=== PATIENT | female | born 1995 | race African-American/Black ===

== ENCOUNTER 2020-01-15 11:17 | Emergency (ER) | payer OTHER ==
[2020-01-15 11:47] VITALS: BP 126/70
--- NOTE | 2020-01-15 12:30 | ER Document Report ---
ED GI/ - General Chief Complaint: Foreign Body Stated Complaint: VAGINAL PROBLEM Time Seen by Provider: 01/15/20 12:12 Primary Care Provider: [facility] [Provider Group] - Follow up as needed Notes: 24-year-old female presented to ED for tampon in the vagina. She states she cannot find the string order tailbone. She states she has tried. She states that she put the tampon in yesterday and then she had sexual intercourse last night and she cannot find the tampon. She states she is having pelvic pain and she thinks is just the tampon. She states if we would remove the tampon she would be fine to go home. She states her last menstrual period started on the third and has been until yesterday. She states she does not smoke but she does use drinks 2 glasses of wine a day usually and smokes pot once a week. Constitutional: Negative for fever. HENT: Negative for sore throat. Eyes: Negative for visual changes. Cardiovascular: Negative for chest pain. Respiratory: Negative for shortness of breath. Gastrointestinal: Negative for abdominal pain, vomiting or diarrhea. Genitourinary: Pelvic pain and a lost tampon. See HPI Musculoskeletal: Negative for back pain. Skin: Negative for rash. Neurological: Negative for headaches, weakness or numbness. 10 point ROS negative except as marked above and in HPI. VITAL SIGNS: Within normal limits. GENERAL: No acute distress, non-toxic appearance. NECK: Normal range of motion, no tenderness, supple, no lymphadenopathy, No adenopathy, no JVD. CHEST: Clear breath sounds bilaterally. No wheezes, rales, or rhonchi. CARDIAC: Regular rate and rhythm. S1 and S2, without murmurs, gallops, or rubs. VASCULAR: No Edema. Peripheral pulses normal and equal in all extremities. ABDOMEN: Normal and soft with no tenderness, no masses or pulsatile masses. GASTROINTESTINAL: Bowel sounds normal GENITOURINARY: Pelvic exam does show a tampon to the right of the cervix. Squished up behind the cervix on the right side. Was able to fish out the string was a Q-tip and then remove the tampon. Patient states is relieved all pain LYMPATHTIC: No lymphadenopathy noted. MUSCULOSKELETAL: Good range of motion of all major joints. Extremities without clubbing, cyanosis or edema. NEUROLOGICAL: Alert and oriented x 3. No focal sensory or strength deficits. Speech normal. Follows commands appropriately. PSYCHIATRIC: Normal Affect, judgement and mood. SKIN: Normal appearance with no rashes or lesions. TRAVEL OUTSIDE OF THE [place] IN LAST 30 DAYS: No - HPI Patient complains to provider of: Pelvic pain Onset: Yesterday Timing/Duration: Persistent Quality of pain: Cramping Severity at maximum: Moderate Severity in ED: Moderate Pain Level: 2 Location: Pelvis Vaginal bleeding (Compared to normal period): None LMP: 01/04/2020 Associated symptoms: Other - Pelvic pain due to yazidism Exacerbated by: Denies Relieved by: Denies Similar symptoms previously: No Recently seen / treated by doctor: No - Related Data Allergies/Adverse Reactions: No Known Allergies Allergy (Verified 01/15/20 12:06) Past Medical History - General Information source: Patient - Social History Smoking Status: Never Smoker Frequency of alcohol use: Heavy - 2 glasses of wine a night Drug Abuse: Marijuana Family History: Reviewed & Not Pertinent Patient has suicidal ideation: No Patient has homicidal ideation: No - Past Medical History Cardiac Medical History: Reports: None Pulmonary Medical History: Reports: None EENT Medical History: Reports: None Neurological Medical History: Reports: None Endocrine Medical History: Reports: None Renal/ Medical History: Reports: None Malignancy Medical History: Reports: None GI Medical History: Reports: None Musculoskeletal Medical History: Reports None Skin Medical History: Reports None Psychiatric Medical History: Reports: None Traumatic Medical History: Reports: None Infectious Medical History: Reports: None Surgical Hx: Negative Past Surgical History: Reports: None Physical Exam - Vital signs Vitals: Temp Pulse Resp BP Pulse Ox 98.5 F 87 16 126/70 H 100 01/15/20 11:46 01/15/20 11:46 01/15/20 11:46 01/15/20 11:46 01/15/20 11:46 Course - Re-evaluation Re-evalutation: 01/15/20 22:19 Patient stated she had complete relief when the tampon was removed. There was no foul odor. There was no bleeding from the vaginal area during the exam. Patient was discharged home to follow-up with primary care. Vital signs were stable. - Vital Signs Vital signs: Temp Pulse Resp BP Pulse Ox 98.5 F 87 16 126/70 H 100 01/15/20 12:06 01/15/20 11:46 01/15/20 11:46 01/15/20 11:46 01/15/20 11:46 Discharge - Discharge Clinical Impression: Tampon in the vagina Condition: Stable Disposition: HOME, SELF-CARE Additional Instructions: You were seen today for a tampon stuck in the vagina Tampon has been removed. Be aware when you put a tampon and no sex while the tampon is in. They can drive it up into an area that will be painful. Please follow-up with your BIOMET[facility] SPECIALIST or primary care doctor to find out why your menstrual cycle has lasted so long. Acetaminophen Acetaminophen may be taken for pain relief or fever control. It's much safer than aspirin, offering a wider range of "safe" dosages. It is safe during . Some brand names are Tylenol, Panadol, Datril, Anacin 3, Tempra, and Liquiprin. Acetaminophen can be repeated every four hours. The following are maximum recommended dosages: WEIGHT Dose Drops Elixir Chewable(80mg) (LBS.) drprs=droppers tsp=teaspoon 6 40 mg .4 ml (1/2) 6-11 80 mg .8 ml (full) 1/2 tsp 1 tab 12-16 120 mg 1 1/2 drprs 3/4 tsp 1 1/2 tabs 17-23 160 mg 2 drprs 1 tsp 2 tabs 24-30 240 mg 3 drprs 1 1/2 tsp 3 tabs 30-35 320 mg 2 tsp 4 tabs 36-41 360 mg 2 1/4 tsp 4 1/2 tabs 42-47 400 mg 2 1/2 tsp 5 tabs 48-53 480 mg 3 tsp 6 tabs 54-59 520 mg 3 1/4 tsp 6 1/2 tabs 60-64 560 mg 3 1/2 tsp 7 tabs 65-70 600 mg 3 3/4 tsp 7 1/2 tabs 71-76 640 mg 4 tsp 8 tabs 77-82 720 mg 4 1/2 tsp 9 tabs 83-88 800 mg 5 tsp 10 tabs >89 pounds or adults 650 mg to 900 mg Acetaminophen can be repeated every four hours. Maximum daily dose not to exceed 4000 mg. These maximum recommended dosages are slightly higher than the dosages written on the product container, but these dosages are very safe and well below the toxic dosage for acetaminophen. Ibuprofen Ibuprofen is an excellent, safe drug for pain control. In addition, it has potent antiinflammatory effects which are beneficial, especially in the treatment of injuries, arthritis, or tendonitis. It's best to take ibuprofen with food. Persons with ulcer disease or allergy to aspirin should notify their physician of this before taking ibuprofen. Take the medication exactly as prescribed. Don't take additional doses unless instructed to do so by your doctor. If you develop wheezing, shortness of breath, hives, faintness, stomach pain, vomiting, or dark black stools, return for re-evaluation at once. FOLLOW-UP CARE: If you have been referred to a physician for follow-up care, call the physicians office for an appointment as you were instructed or within the next two days. If you experience worsening or a significant change in your symptoms, notify the physician immediately or return to the Emergency Department at any time for re-evaluation. Referrals: [facility] [Provider Group] - Follow up as needed
== END 2020-01-15 12:40 | disposition home or self-care (01) ==
LOC: ER 11:17
DX: T19.2XXA Foreign body in vulva and vagina, initial encounter (principal); R10.2 Pelvic and perineal pain; F12.10 Cannabis abuse, uncomplicated
CPT/HCPCS: 99284

== ENCOUNTER 2020-02-01 18:40 | Emergency (ER) | payer OTHER ==
--- NOTE | 2020-02-01 18:59 | ER Document Report ---
ED Medical Screen (RME) - General Chief Complaint: Flank Pain Stated Complaint: RIGHT FLANK PAIN Time Seen by Provider: 02/01/20 18:51 TRAVEL OUTSIDE OF THE [place] IN LAST 30 DAYS: No - HPI Notes: 02/01/20 18:57 24-year-old female with past medical history for depression, insomnia, HIV to the emergency department with complaints of bilateral flank pain that is been getting worse for 1 week. She states that for 1 week she is also had painful urination and frequent urination. She states she is never had a kidney infection before. Denies any fevers, chills, nausea, vomiting. She is never had surgery on her abdomen. On brief medical screening exam patient has right CVA tenderness and mild right upper quadrant and right lower quadrant tenderness to palpation. I performed a brief medical screening exam on the patient determined that the patient needs further evaluation and management by main side provider. I have placed initial orders to help expedite care. - Related Data Allergies/Adverse Reactions: No Known Allergies Allergy (Verified 02/01/20 18:51) Physical Exam - Vital signs Vitals: Temp Pulse Resp BP Pulse Ox 98.4 F 81 20 117/77 100 02/01/20 18:49 02/01/20 18:49 02/01/20 18:49 02/01/20 18:49 02/01/20 18:49 Course - Vital Signs Vital signs: Temp Pulse Resp BP Pulse Ox 98.4 F 81 20 117/77 100 02/01/20 18:49 02/01/20 18:49 02/01/20 18:49 02/01/20 18:49 02/01/20 18:49
[2020-02-01 19:49] LABS: ABSOLUTE BASOPHILS # (AUTO) 0.1 10^3/uL (0.0-0.2); ABSOLUTE EOSINOPHILS # (AUTO) 0.1 10^3/uL (0.0-0.6); ABSOLUTE LYMPHOCYTES (AUTO) 2.7 10^3/uL (0.5-4.7); ABSOLUTE MONOCYTES (AUTO) 0.6 10^3/uL (0.1-1.4); ABSOLUTE NEUT (AUTO) 6.7 10^3/uL (1.7-8.2); BASOPHILS % (AUTO) 0.8 % (0-2); EOSINOPHILS % (AUTO) 0.8 % (0-6); HEMATOCRIT 38.8 % (36.0-47.0); LYMPHOCYTES % (AUTO) 26.3 % (13-45); MEAN CORPUSCULAR HEMOGLOBIN 29.9 pg (27.0-33.4); MEAN CORPUSCULAR HGB CONC 33.5 g/dL (32.0-36.0); MEAN CORPUSCULAR VOLUME 89 fl (80-97); MONOCYTES % (AUTO) 5.8 % (3-13); PLATELET COUNT 280 10^3/uL (150-450); RED BLOOD COUNT 4.34 10^6/uL (3.72-5.28); RED CELL DISTRIBUTION WIDTH 13.9 % (11.5-14.0); SEGMENTED NEUTROPHILS % (AUTO) 66.3 % (42-78); TOTAL CELLS COUNTED % (AUTO) 100 %; WHITE BLOOD COUNT 10.1 10^3/uL (4.0-10.5)
[2020-02-01 20:01] LABS: ALBUMIN 4.5 g/dL (3.5-5.0); ALKALINE PHOSPHATASE 149 U/L (38-126); ANION GAP 7 (5-19); ASPARTATE AMINO TRANSFERASE 32 U/L (14-36); BILIRUBIN,DIRECT 0.1 mg/dL (0.0-0.4); BILIRUBIN,TOTAL 0.5 mg/dL (0.2-1.3); BLOOD UREA NITROGEN 9 mg/dL (7-20); CALCIUM 10.2 mg/dL (8.4-10.2); CARBON DIOXIDE 27 mmol/L (22-30); CHLORIDE 105 mmol/L (98-107); GLUCOSE 88 mg/dL (75-110); POTASSIUM 4.6 mmol/L (3.6-5.0); TOTAL PROTEIN 7.7 g/dL (6.3-8.2)
--- NOTE | 2020-02-01 20:02 | ER Document Report ---
ED GI/ - General Chief Complaint: Flank Pain Stated Complaint: RIGHT FLANK PAIN Time Seen by Provider: 02/01/20 18:51 Mode of Arrival: Ambulatory Information source: Patient Notes: Low back pain for several days now with some radiation up towards her kidneys. Has some right side flank pain radiating around her pelvis as well. States that her urine is very strong smelling and dark. She has a little bit of dysuria. No frequency or urgency. No history of recurrent UTI. Denies . Otherwise in her usual state of health. Denies any fever or chills. TRAVEL OUTSIDE OF THE [place] IN LAST 30 DAYS: No - Related Data Allergies/Adverse Reactions: No Known Allergies Allergy (Verified 02/01/20 18:51) Past Medical History - General Information source: Patient - Social History Smoking Status: Never Smoker Chew tobacco use (# tins/day): No Frequency of alcohol use: Social Drug Abuse: Marijuana Family History: Reviewed & Not Pertinent - Medical History Medical History: Negative Review of Systems - Review of Systems Constitutional: denies: Chills, Fever Respiratory: No symptoms reported Gastrointestinal: denies: Diarrhea, Nausea, Vomiting, Rectal bleeding Genitourinary: See HPI Physical Exam - Vital signs Vitals: Temp Pulse Resp BP Pulse Ox 98.4 F 81 20 117/77 100 02/01/20 18:49 02/01/20 18:49 02/01/20 18:49 02/01/20 18:49 02/01/20 18:49 - Notes Notes: General: Well-developed well-nourished pleasant young female no acute distress. Vital signs and nursing chief complaint are reviewed. Lungs: Clear auscultation. Heart: Regular rate and rhythm no murmur. Back: Mild CVA tenderness on the right. Abdomen: Soft, mild right upper quadrant right lower quadrant tenderness to direct palpation. No guarding, no masses. No rebound noted. Course - Re-evaluation Re-evalutation: 02/01/20 20:56 Patient rested comfortably throughout her stay. Urinalysis was consistent with mild UTI. CBC and Weems profile were unrevealing. Patient will be treated with oral antibiotics and follow-up as needed. - Vital Signs Vital signs: Temp Pulse Resp BP Pulse Ox 98.4 F 81 20 117/77 100 02/01/20 18:49 02/01/20 18:49 02/01/20 18:49 02/01/20 18:49 02/01/20 18:49 - Laboratory Result Diagrams: 02/01/20 19:20 02/01/20 19:20 Laboratory results interpreted by me: 02/01/20 02/01/20 19:20 20:00 Alkaline Phosphatase 149 H Leukocyte Esterase Rfl MODERATE H Discharge - Discharge Clinical Impression: UTI (urinary tract infection) Qualifiers: Urinary tract infection type: site unspecified Hematuria presence: without hematuria Qualified Code(s): N39.0 - Urinary tract infection, site not specified Condition: Good Disposition: HOME, SELF-CARE Instructions: Urinary Tract Infection ([facility]), Trimethoprim-Sulfa ([facility]) Additional Instructions: A prescription for Bactrim DS has been transmitted to the [facility] drugstore right outside the hospital per your request. Please pick this up and take it until it is all gone. Follow-up with your primary care doctor or return here if your symptoms worsen or if any other concerning symptoms develop. Prescriptions: Sulfamethoxazole/Trimethoprim [Septra-Ds 800-160 mg Tablet] 1 tab PO BID #14 tablet
[2020-02-01 20:31] LABS: APPEARANCE,URINE SLIGHTLY-CLOUDY; BILIRUBIN,URINE NEGATIVE (NEGATIVE); COLOR,URINE YELLOW; GLUCOSE, URINE NEGATIVE (NEGATIVE); KETONES,URINE NEGATIVE (NEGATIVE); PROTEIN,URINE NEGATIVE (NEGATIVE); URINE SPECIFIC GRAVITY 1.028; UROBILINOGEN,URINE NEGATIVE mg/dL (<2.0)
[2020-02-01 22:14] VITALS: BP 115/69
== END 2020-02-01 21:50 | disposition home or self-care (01) ==
LOC: ER 18:40
DX: N39.0 Urinary tract infection, site not specified (principal); M54.5 Low back pain; R10.811 Right upper quadrant abdominal tenderness; R10.812 Left upper quadrant abdominal tenderness; F12.10 Cannabis abuse, uncomplicated
CPT/HCPCS: 36415; 80053; 81001; 84703; 85025; 87086; 99283